=== PATIENT | male | born 1970 | race African-American/Black ===

== ENCOUNTER 2023-03-14 17:34 | Emergency (ER) | payer OTHER | END 2023-03-14 18:32 | disposition home or self-care (01) | LOC: ERS 17:34 | DX: N50.811 Right testicular pain (principal); I86.1 Scrotal varices; E78.00 Pure hypercholesterolemia, unspecified; I10 Essential (primary) hypertension; F17.210 Nicotine dependence, cigarettes, uncomplicated | CPT/HCPCS: 76870; 93976 ==